=== PATIENT | male | born 1955 | race Caucasian/White ===

== ENCOUNTER 2016-09-01 11:36 | Observation (INO) ==
[2016-09-01] MEDS ORDERED: Aspirin 81 MG TAB.CHEW PO ONE (11:58)
--- NOTE | 2016-09-01 12:06 | Emergency Department Note ---
Disposition Clinical Impression: Chest pain Qualifiers: Chest pain type: unspecified Qualified Code(s): R07.9 - Chest pain, unspecified Disposition: Admitted As Inpatient Condition: Good Referrals: Sue Reynolds CNP [Primary Care Provider] - Forms: ED Satisfaction Letter Time of Disposition: 13:38 Chest Pain HPI - General Chief Complaint: ED Chest Pain Stated Complaint: SOB, Chest discomfort Time Seen by Provider: 09/01/16 11:51 Source: patient Limitations: no limitations Vital Signs Reviewed: Yes Nursing Notes Reviewed: Yes - History of Present Illness HPI Narrative: 61-year-old with previous history of MS and stents back in 2009 comes in complaining of chest pain that started earlier today. He describes it as a tight heaviness in his chest. 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 Duration: constant Pain Location: substernal, left chest Severity scale (1-10): 0 Quality: tightness, aching, heaviness Pain Radiation: none Improves with: nothing Worsens with: nothing Associated symptoms: Denies: nausea, vomiting Treatments prior to arrival chest pain: aspirin - Related Data Allergies Allergy/AdvReac Type Severity Reaction Status Date / Time No Known Allergies Allergy Verified 09/01/16 11:46 Constitutional: Denies: fever, chills, weakness, weight change Eyes: Denies: eye pain, eye discharge, vision change ENT ED: Denies: ear pain, throat pain, dental pain, hearing loss, epistaxis, congestion, dysphagia Cardiovascular: Reports: chest pain. Denies: palpitations, dyspnea on exertion , edema, syncope Respiratory: Denies: cough, dyspnea, wheezes, hemoptysis, stridor Gastrointestinal: Denies: abdominal pain, nausea, vomiting, diarrhea, constipation, hematemesis, melena, hematochezia Genitourinary: Denies: urgency, dysuria, frequency, hematuria Musculoskeletal: Denies: back pain, neck pain, arthralgia, myalgia Integumentary: Denies: rash, abrasion, lesions Neurological: Denies: headache, weakness, numbness, paresthesias, confusion, abnormal gait, vertigo Psychiatric: Denies: anxiety, depression, suicidal thoughts, homicidal thoughts , auditory hallucinations, visual hallucinations Endocrine: Denies: fatigue Hematological/Lymphatic: Denies: easy bleeding, easy bruising Allergic/Immunologic: Denies: facial swelling, urticaria Chest Pain PMH - Past Medical History Medical history: Reports: COPD, diabetes, hyperlipidemia, hypertension, kidney stones, myocardial infarction Psychiatric history: Reports: no psych history - Social History Smoking Status: Former smoker Alcohol use: Reports: none Drug use: Reports: none Physical Exam - General Limitations: no limitations General appearance: alert, in no apparent distress - Head Head exam: atraumatic, normocephalic, normal inspection - Eye Eye exam: Present: normal appearance, PERRL, EOMI - ENT ENT exam: normal exam, normal oropharynx, mucous membranes moist - Neck Neck exam: Present: normal inspection, full ROM, trachea midline - Chest Chest inspection: Present: normal inspection, symmetric chest wall rise - Respiratory Respiratory exam: Present: normal lung sounds bilaterally - Cardiovascular Cardiovascular exam: Present: regular rate, normal rhythm, normal heart sounds - Abdominal Exam Abdominal exam: Present: soft, Non-Tender. Absent: tenderness, distention, guarding, rebound, rigidity - Extremities Exam Extremities exam: Present: normal inspection, full ROM. Absent: tenderness, pedal edema - Expanded Lower Extremity Exam Neurovascular/Tendon exam: Absent: motor deficit, sensory deficit, tendon deficit Gait: observed and normal - Back Exam Back exam: Present: normal inspection, full ROM. Absent: tenderness - Neurological Exam Neurological exam: Present: alert, oriented X3 - Psychiatric Psychiatric exam: Present: normal affect, normal mood - Skin Skin exam: Present: warm, dry, intact, normal color Course - Reevaluation(s) Reevaluation #1: Patient with multiple risk factors comes in complaining of chest tightness and heaviness. States has had a previous MS with similar symptoms. Time: 13:37 - Consultations Consultation #1: Discussed with Raissa Hicks nurse practitioner who accepts the patient for admission. Time: 13:36 Vital Signs Temperature 98.3 F 09/01/16 11:46 Pulse Rate 116 09/01/16 11:46 Respiratory Rate 18 09/01/16 11:46 Blood Pressure 121/77 09/01/16 11:46 O2 Sat by Pulse Oximetry 92 L 09/01/16 11:46 Temperature 98.3 F 09/01/16 11:46 Pulse Rate 107 09/01/16 13:15 Respiratory Rate 18 09/01/16 13:15 Blood Pressure 114/81 09/01/16 13:15 O2 Sat by Pulse Oximetry 94 L 09/01/16 13:15 Oxygen Delivery Oxygen Delivery Nasal Cannula Chest Pain - Lab Data Lab results reviewed: Yes I reviewed the patient's lab results. Result diagrams: 09/01/16 12:10 09/01/16 12:10 Lab Results 09/01/16 09/01/16 09/01/16 Range/Units 12:10 12:10 12:10 WBC 6.4 (4.3-11.1) K/mcL RBC 4.66 (4.19-5.50) M/mcL Hgb 14.3 (12.9-16.9) g/dL Hct 42.4 (37.5-50.1) % MCV 91.0 (83.0-100.0) fL MCH 30.7 (28.0-33.3) pg MCHC 33.7 (31.6-35.5) g/dL RDW 12.3 (11.5-14.5) % Plt Count 256 (140-400) K/mcL MPV 10.4 (9.4-12.4) fL Immature Gran % 0.3 (0-4) % Seg Neutrophils % 37.9 % Lymphocytes % 48.0 % Monocytes % 5.8 % Eosinophils % 7.4 % Basophils % 0.6 % Neutrophils # 2.4 (1.6-8.9) K/mcL Lymphocytes # 3.1 (0.6-4.6) K/mcL Monocytes # 0.4 (0.0-1.3) K/mcL Eosinophils # 0.5 (0.0-0.6) K/mcL Basophils # 0.0 (0.0-0.2) K/mcL PT 10.3 (9.4-12.1) Seconds INR 1.0 APTT 23.8 L (26.0-36.0) Seconds Sodium 137 (136-145) mEq/L Potassium 3.9 (3.5-4.5) mEq/L Chloride 102 (98-109) mEq/L Carbon Dioxide 25 (19-29) mEq/L BUN 16 (8-26) mg/dL Creatinine 1.15 (0.72-1.25) mg/dL Est GFR ( Amer) > 60 (> 60) Est GFR (Non-Af Amer) > 60 (> 60) BUN/Creatinine Ratio 14 (6-26) Glucose 494 H (70-99) mg/dL Calculated Osmolality 307 H (280-300) Calcium 9.1 (8.6-10.8) mg/dL Troponin I (0-0.03) ng/mL 09/01/16 Range/Units 12:10 WBC (4.3-11.1) K/mcL RBC (4.19-5.50) M/mcL Hgb (12.9-16.9) g/dL Hct (37.5-50.1) % MCV (83.0-100.0) fL MCH (28.0-33.3) pg MCHC (31.6-35.5) g/dL RDW (11.5-14.5) % Plt Count (140-400) K/mcL MPV (9.4-12.4) fL Immature Gran % (0-4) % Seg Neutrophils % % Lymphocytes % % Monocytes % % Eosinophils % % Basophils % % Neutrophils # (1.6-8.9) K/mcL Lymphocytes # (0.6-4.6) K/mcL Monocytes # (0.0-1.3) K/mcL Eosinophils # (0.0-0.6) K/mcL Basophils # (0.0-0.2) K/mcL PT (9.4-12.1) Seconds INR APTT (26.0-36.0) Seconds Sodium (136-145) mEq/L Potassium (3.5-4.5) mEq/L Chloride (98-109) mEq/L Carbon Dioxide (19-29) mEq/L BUN (8-26) mg/dL Creatinine (0.72-1.25) mg/dL Est GFR ( Amer) (> 60) Est GFR (Non-Af Amer) (> 60) BUN/Creatinine Ratio (6-26) Glucose (70-99) mg/dL Calculated Osmolality (280-300) Calcium (8.6-10.8) mg/dL Troponin I 0.01 (0-0.03) ng/mL - Radiology Data Radiology results reviewed: Yes I reviewed the patient's radiology results. Chest X-Ray 09/01/16 11:58 IMPRESSION: Small focal infiltrate in the right perihilar region. D/ / 09/01/2016 12:55:44 Deven Palencia MD / bcarter Interpreting Provider: Deven Palencia MD - EKG Data EKG attestation: Yes I reviewed and interpreted this EKG. EKG shows normal: sinus rhythm Rate: normal Rhythm: NSR Interpretation: nonspecific ST-T wave changes Heart Score - Score History: Moderately Suspicious EKG: Non Specific repolarisation Disturbance Age: 45-65 Risk Factors: Equal/Greater than 3 risk factor or history of atherosclerotic disease Troponin: Less than normal limit HEART Score Total: 5
[2016-09-01 12:30] LABS: Basophils % 0.6 %; Eosinophils # 0.5 K/mcL (0.0-0.6); Eosinophils % 7.4 %; Hematocrit 42.4 % (37.5-50.1); Hemoglobin 14.3 g/dL (12.9-16.9); Immature Granulocytes % 0.3 % (0-4); Lymphocytes # 3.1 K/mcL (0.6-4.6); Mean Corpuscular HGB Conc 33.7 g/dL (31.6-35.5); Mean Corpuscular Hemoglobin 30.7 pg (28.0-33.3); Mean Platelet Volume 10.4 fL (9.4-12.4); Monocytes # 0.4 K/mcL (0.0-1.3); Monocytes % 5.8 %; Neutrophils # 2.4 K/mcL (1.6-8.9); Platelet Count 256 K/mcL (140-400); Red Blood Count 4.66 M/mcL (4.19-5.50); Red Cell Distribution Width 12.3 % (11.5-14.5); Segmented Neutrophils % 37.9 %
[2016-09-01 12:34] LABS: Prothrombin Time 10.3 Seconds (9.4-12.1)
[2016-09-01 12:37] LABS: Activated Partial Thrombo Time 23.8 Seconds (26.0-36.0)
[2016-09-01 12:41] LABS: BUN/Creatinine Ratio 14 (6-26); Blood Urea Nitrogen 16 mg/dL (8-26); Calcium 9.1 mg/dL (8.6-10.8); Carbon Dioxide 25 mEq/L (19-29); Chloride 102 mEq/L (98-109); Glucose 494 mg/dL (70-99); Osmolality,Calculated 307 (280-300); Potassium 3.9 mEq/L (3.5-4.5); Sodium 137 mEq/L (136-145); eGFR For African Americans > 60 (> 60); eGFR For Non-African Americans > 60 (> 60)
[2016-09-01] MEDS ORDERED: Azithromycin 500 MG in D5% in Water 250 ML IVPB ONE (13:18)
[2016-09-01] MEDS ORDERED: Acetaminophen 325 MG TABLET PO PRN (15:12)
[2016-09-01] MEDS ORDERED: Naloxone 0.4 MG/ML INJ IVP PRN (15:12)
[2016-09-01] MEDS ORDERED: *HR* Dextrose 50 % in Water (Syg) 50 ML SYRINGE IVP PRN (15:15)
[2016-09-01] MEDS ORDERED: D5% in Water 1,000 ML IVC PRN (15:15)
[2016-09-01] MEDS ORDERED: Dextrose Gel 15 GM PO PRN ×2 (15:15)
--- NOTE | 2016-09-01 15:19 | Internal Med History&Physical ---
<Raissa Hicks - Last Filed: 09/01/16 22:54> Date of Encounter: 09/01/16 Time of Encounter: 15:19 Assessment and Plan (1) Chest pain Current visit: Yes Status: Acute 1 patient has been experiencing chest pressure tightness. He has had previous CT, hypertension and diabetes. first cardiac troponins are negative we will continue to cycle cardiac troponins 2 Will obtain cardiac echo 3 make patient nothing by mouth after midnight 4 consult cardiology as needed 5 continuous cardiac monitoring/EKG 6 oxygen as needed/nitroglycerin as needed 7 continue with aspirin and Plavix statin beta dashawn 8 x-ray did reveal possible small infiltrate have her rechecked PA and lateral which was clear Qualifiers: Chest pain type: unspecified Qualified Code(s): R07.9 - Chest pain, unspecified (2) Hypertension Current visit: Yes Status: Acute 1 presently controlled we will continue with beta dashawn goals to maintain systolic less than 140 Qualifiers: Hypertension type: essential hypertension Qualified Code(s): I10 - Essential (primary) hypertension (3) Diabetes mellitus Current visit: Yes Status: Acute 1 A she is on oral antidiabetics will hold for now and place on Accu-Cheks before meals at bedtime with sliding scale insulin. 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 Diaz is a 61 year old male past medical history of diabetes hypertension CT with stent placement COPD. According to patient he began to experience left- sided chest pressure 4-5/10 . Pain was nonradiating there were no aggravating or relieving factors. Patient did take 3 nitroglycerin without any relief. He did have some shortness of breath during the episode . He is concerned because the pain reminds him of his previous heart attack. He is also noticing increasing shortness of breath over the past couple of days. He denies any cough fevers chills nausea vomiting or diarrhea. He presented to the ER with complaint of chest pain. According to ER records versus cardiac troponins are negative EKG normal sinus rhythm rest of lab work as unremarkable chest x-ray did show a small focal infiltrate and right paul-hilar region. He has been admitted for further workup evaluation. Presently patient denies any chest pain or shortness of breath. Does not appear to be in respiratory distress. Lung sounds are clear. Heart sounds with S1 S2 no rubs clips gallops or murmurs noted. No lower extremity edema noted. At present time patient is hemodynamically stable.I reviewed this case with Dr Anderson. Who agrees with plan. Past Med Surg Social Fam HX - Past Medical History Medical history: COPD, diabetes, hyperlipidemia, hypertension, kidney stones, myocardial infarction Psychiatric history: no psych history - Social History Smoking Status: Former smoker Smokeless Tobacco Status: No Alcohol use: none Drug use: none - Family History Mother Living Status: Hx Family Neurologic Disorders: Yes (stroke) Father Living Status: Hx Family Cardiac Disorders: Yes (heart attack) Internal Medicine - H&P: Meds Albuterol Neb [Proventil Neb] 2.5 mg IH Q6H PRN 09/01/16 [History] Albuterol Sulfate [Proair Hfa] 2 puff IH Q4H PRN 09/01/16 [History] Allopurinol [Zyloprim 300 MG] 300 mg PO DAILY 09/01/16 [History] Aspirin Enteric Coated [Aspirin EC] 81 mg PO DAILY 09/01/16 [History] Atorvastatin Calcium 80 mg PO HS 09/01/16 [History] Clopidogrel [Plavix] 75 mg PO DAILY 09/01/16 [History] Fluticasone/Salmeterol [Advair 250-50 Diskus] 1 each IH BID 09/01/16 [History] Metformin HCl [Metformin HCl ER] 500 mg PO DAILY 09/01/16 [History] Metoprolol [Lopressor] 25 mg PO BID 09/01/16 [History] Tamsulosin [Flomax] 0.4 mg PO DAILY 09/01/16 [History] Allergies No Known Allergies Allergy (Verified 09/01/16 11:46) All Systems PM: A 10-system review of systems was performed and is negative for pertinent findings except as documented above in the HPI. - Constitutional Constitutional: no chills, no fever(s), no night sweats - EENT Eyes: no change in vision, no discharge, no pain, no photophobia - Cardiovascular Cardiovascular ROS IM: chest pain, dyspnea - Respiratory Respiratory: dyspnea - Gastrointestinal Gastrointestinal: no abdominal pain, no diarrhea, no hematemesis, no hematochezia, no melena, no nausea, no vomiting - Musculoskeletal Musculoskeletal ROS IM: no numbness, no tingling - Integumentary Integumentary IM: no rash, no unusual bruising - Neurological Neurological ROS: no confusion, no convulsions, no focal weakness, no numbness, no tingling, no tremor(s) - Hematologic/Lymphatic Hematologic/Lymphatic: no easy bruising - Constitutional Vitals: Temp Pulse Resp BP Pulse Ox 98.3 F 96 18 116/77 95 09/01/16 11:46 09/01/16 14:30 09/01/16 14:30 09/01/16 14:30 09/01/16 14:30 General appearance: Present: A&O X 3 - Head Head exam: Present: atraumatic, normocephalic - Neck Neck exam general surgery: Present: supple, trachea midline. Absent: lymphadenopathy - Respiratory Respiratory exam: Present: CTAB. Absent: accessory muscle use, rales, rhonchi, wheezes - Cardiovascular Cardiovascular exam: Present: RRR, +S1, +S2. Absent: diastolic murmur, gallop, rubs, systolic murmur - Extremities Exam Extremities exam: Present: warm, radial pulses palpable and symetrical. Absent : calf tenderness, cyanotic, pedal edema - Neurological Exam Neurological exam: Present: CN II-XII intact, oriented X3, no focal deficits. Absent: pronater drift, facial droop, speech deficit - Skin Skin exam: Present: dry, intact Internal Med - H&P Results - Labs CBC & Chem 7: 09/01/16 12:10 09/01/16 12:10 - EKG Data EKG shows normal: sinus rhythm <Lucia Maher R - Last Filed: 09/02/16 00:39> Internal Medicine - H&P: HPI History of present illness: Mr. Diaz is a 61 year old male All Systems PM: A 10-system review of systems was performed and is negative for pertinent findings except as documented above in the HPI. - Constitutional Vitals: Temp Pulse Resp BP Pulse Ox 98.1 F 80 16 102/64 94 L 09/01/16 23:34 09/01/16 23:34 09/01/16 23:34 09/01/16 23:34 09/01/16 23:34 Internal Med - H&P Results - Labs CBC & Chem 7: 09/01/16 12:10 09/01/16 12:10 Labs: Cardiac Enzymes 09/01/16 Range/Units 18:26 Troponin I 0.00 (0-0.03) ng/mL - Impressions ITS Impressions Chest X-Ray 09/01/16 20:06 IMPRESSION: No acute cardiopulmonary disease. In particular, no perihilar infiltrate on the right. D/ / Jamil Murillo MD / Jamil Murillo MD Interpreting Provider: Jamil Murillo MD - Attending Attestation I evaluated the patient and my medical decision-making was reviewed with the [employer] DEVELOPER/ Advanced Practice Nurse. I agree with the documented findings, disposition and treatment plan as described except to the extent set forth below. 61-year-old male with a prior history of diabetes, hypertension, CAD s/p stent placement, COPD - presents with nonradiating chest discomfort / pressure, exertional shortness of breath. O/E: Occasional wheeze present. Cardiac: RRR. EKG non acute. Initial CXR reported right perihilar infiltrate, repeat chest x- ray did not show any acute abnormality. Initial troponins negative. A/P: Chest pain Need to exclude ACS. Could be contributed by COPD exacerbation. Low dose steroids (has hyperglycemia) and bronchodilators.
[2016-09-01] MEDS: Insulin LISPRO 300 UNITS/3 ML VIAL SQ SCH (16:51)
[2016-09-01] MEDS ORDERED: Insulin LISPRO 300 UNITS/3 ML VIAL SQ SCH (21:00)
[2016-09-01] MEDS: Budesonide/Formoterol 80/4.5 MDI IH SCH (22:48)
[2016-09-02] MEDS ORDERED: Ipratropium/Albuterol Neb 3 ML IH PRN (00:37)
[2016-09-02] MEDS ORDERED: predniSONE 20 MG TABLET PO SCH (00:45)
[2016-09-02 00:49] LABS: Basophils # 0.1 K/mcL (0.0-0.2); Basophils % 0.9 %; Eosinophils # 1.1 K/mcL (0.0-0.6); Eosinophils % 13.6 %; Hematocrit 38.9 % (37.5-50.1); Hemoglobin 13.2 g/dL (12.9-16.9); Immature Granulocytes % 0.1 % (0-4); Lymphocytes # 2.9 K/mcL (0.6-4.6); Lymphocytes % 37.4 %; Mean Corpuscular HGB Conc 33.9 g/dL (31.6-35.5); Mean Corpuscular Hemoglobin 31.1 pg (28.0-33.3); Mean Corpuscular Volume 91.7 fL (83.0-100.0); Mean Platelet Volume 10.3 fL (9.4-12.4); Monocytes # 0.7 K/mcL (0.0-1.3); Platelet Count 212 K/mcL (140-400); Red Blood Count 4.24 M/mcL (4.19-5.50); Red Cell Distribution Width 12.4 % (11.5-14.5)
[2016-09-02 01:07] LABS: BUN/Creatinine Ratio 15 (6-26); Blood Urea Nitrogen 13 mg/dL (8-26); Calcium 8.3 mg/dL (8.6-10.8); Carbon Dioxide 23 mEq/L (19-29); Chloride 104 mEq/L (98-109); Chol/HDL Ratio 4.3 (0-4.9); Cholesterol 111 mg/dL (< 200); Glucose 388 mg/dL (70-99); HDL Cholesterol 26 mg/dL (40-59); LDL Cholesterol,Calculated 31 mg/dL (0-99); Osmolality,Calculated 298 (280-300); Potassium 3.6 mEq/L (3.5-4.5); Sodium 136 mEq/L (136-145); Triglycerides 269 mg/dL (< 150); eGFR For African Americans > 60 (> 60); eGFR For Non-African Americans > 60 (> 60)
[2016-09-02] MEDS: Budesonide/Formoterol 80/4.5 MDI IH SCH (07:52)
[2016-09-02] MEDS ORDERED: Aspirin Enteric Coated 81 MG Tablet PO SCH (09:00)
[2016-09-02] MEDS: Insulin LISPRO 300 UNITS/3 ML VIAL SQ SCH ×2 (10:08→14:11)
--- NOTE | 2016-09-02 10:23 | ECHO - Doppler Report ---
Echocardiogram Name: Jordan Diaz Date of Study: 09/02/2016 Date: 1955 Ht: 70.0 in Medical Record#: [id number] Age: 61 Wt: 214.0 lb Gender: Male BSA: 2.15 Order #: [id number] Location: [facility] Room #: 3B Reading Physician: Bhupinder Higginbotham MD, [facility] Mica Splitter: Alex Allen RDCS Ordering Physician: Raissa Hicks CNP Primary Physician: None Indications: Chest pain Impressions: Normal LV systolic function, LVEF 60-65%. Mild left ventricular diastolic dysfunction. Normal right ventricular size and function. No significant valvular dysfunction. Left Ventricular Wall Motion: Rest Echo Findings All wall segments showed normal motion. Findings: Study Quality * Technically adequate exam. ECG Findings * Normal sinus rhythm. Left Ventricle * Normal LV systolic function, LVEF 60-65%. * Normal LV chamber size, wall thickness and function. * Mild left ventricular diastolic dysfunction. Right Ventricle * Normal right ventricular size and function. Left Atrium * Normal left atrial size. Right Atrium * Normal right atrial size. Aorta * Normally sized aortic root. Pericardium * There is no pericardial effusion present. IVC * The IVC is not dilated. Aortic Valve * Trileaflet aortic valve. * Mildly sclerotic aortic valve leaflets. * No aortic stenosis. * No aortic regurgitation. Mitral Valve * Normal mitral valve structure. * No mitral stenosis. * Trace mitral regurgitation. Tricuspid Valve * Normal tricuspid valve structure. * No tricuspid stenosis. * Trace tricuspid regurgitation. * Unable to estimate RVSP due to lack of TR jet. Pulmonic Valve * Normal pulmonic valve structure. * No pulmonic stenosis. * No pulmonic regurgitation. History Hypertension Diabetes Hypercholesteremia Family History of CAD History of CAD/PTCA Myocardial Infarction Measurements: BP: 132/ 77 2D Normal Values RVIDd: 3.30 cm IVSd: .90 cm 0.6 - 1.0 cm LVIDd: 4.26 cm 3.7 - 5.6 cm LVPWd: .79 cm 0.6 - 1.1 cm LVIDs: 2.76 cm 1.5 - 3.6 cm AO: 3.20 cm < 4.0 cm %FS: 35.20 cm >25 % LA volume: 55 Mitral Valve Peak E:.70 m/sec Peak A:.90 m/sec E/A Ratio:0.8 Updated by Bhupinder Higginbotham MD, FACC on 09/02/2016 10:18:26 AM electronically signed on 09/02/2016 10:18:49 AM with status of Final Wall Motion Murillo: 1=Normal, 2=Hypokinesis, 3=Akinesis, 4=Dyskinesis, 5=Aneurysmal, 6=Hyperkinetic, X=Not Visualized (Blank)=Missing
--- NOTE | 2016-09-02 10:43 | Nuclear Medicine Stress Report ---
Exercise Nuclear Stress Name: Jordan Diaz Date of Study: 09/02/2016 Date: 1955 Ht: 70.0 in Medical Record#: [id number] Age: 61 Wt: 210.0 lb Gender: Male Order #: [id number] Location: [facility] IP Room: [facility] Supervising Provider: Elayne Hernandez CNP Reading Physician: Bhupinder Higginbotham MD, [facility] Ordering Physician: Yeimi Lane CNP Primary Care Physician: Sue Reynolds CNP Stress Technologist: Joel Bermudez, ASSEMBLY ASSOCIATE, [facility] Optometric Assistant: Dar Cano Indications: Chest Pressure, Chest Pressure Impression: The exercise capacity was fair. Exercise ECG is negative for ischemia. Gated LVEF > 70%. Perfusion imaging was negative for ischemia or infarct. History: Hypertension Diabetes Hypercholesteremia Stress Test Summary: Stress Test Type: Treadmill Protocol: Foreign Baseline Information: Initial Heart Rate: 92 Blood Pressure: 118/78 Stress Information: Stress Time: 5 min 00 sec Test Terminated Due to (primary): Dyspnea Maximum Blood Pressure: 160/76 Maximum Heart Rate: 138 Percent Maximum Heart Rate Achieved: 87 Double Product: 21110 METS Reached: 7 Symptoms: Shortness of breath, Fatigue, Shortness of breath, Fatigue Nuclear Summary: SPECT myocardial perfusion imaging using Tc99m Sestamibi given intravenously was performed at rest and following cardiac stress testing. The resting images were obtained following initial dose of 10.4 mCi. Following stress an additional dose of 33 mCi was given at peak exercise or 30 seconds post regadenoson infusion. Findings: Stress Note * Resting ECG demonstrated normal sinus rhythm. * No baseline arrhythmias were noted. * The exercise capacity was fair. * Patient had no chest pain during stress. * No arrhythmias were noted during stress. * Exercise ECG is negative for ischemia. Hemodynamic responses * Normal hemodynamic responses to exercise. Study Quality * Study quality is average. Gated EF > 70% * Gated LVEF > 70%. Left Ventricle * The left ventricle is not dilated. * Normal Segmental Perfusion in rest. * Normal segmental perfusion in stress. * Mild inferior wall artifact is noted. TID * No evidence of transient ischemic dilatation. Updated by Bhupinder Higginbotham MD, [facility] on 09/02/2016 10:38:49 AM electronically signed on 09/02/2016 10:39:11 AM with status of Final
[2016-09-02 14:45] VITALS: BP 106/73
--- NOTE | 2016-09-02 15:56 | Discharge Summary ---
Date of Encounter: 09/02/16 Time of Encounter: 15:15 - Discharge Diagnosis (1) Chest pain Priority: Secondary Status: Acute Comments: Pt was admitted for mid sternal chest pressure since yesterday prior to arrival. Pt denies radiation of pain, n/v, SOB, or diaphoresis. He denies chest pressure now, as well as other, above mentioned symptoms.Pt had stress test today that was negative for ischemia or infarct, gated LVEF >70%. Echo showed LVE 60-65%, mild LV diastolic dysfunction, normal RV size and function, and no significant valvular dysfunction. EKG was negative for ischemia, as well. Pt has been up walking around and even left the unit to go to the vending machine without SOB or chest pain. Troponins were negative x 3. Repeat chest xray was negative. Lungs are clear except for wheezing in LLL, pt has no peripheral edema. Qualifiers: Chest pain type: unspecified Qualified Code(s): R07.9 - Chest pain, unspecified (2) COPD (chronic obstructive pulmonary disease) Priority: Secondary Status: Chronic Comments: Pt has a history of COPD that is well controlled. Pt had initial chest xray in the ER last night that showed infiltrate in the R perihilar area. Chest xray was repeated and there was no infiltrate. Pt has been afebrile, denies change in his cough, denies increased inhaler useage, and no leukocytosis. Pt states that he stopped smoking about 4 years ago. He states that he feels as he normally does and he does not require 02 at home. He states that he will return or go to the ED or urgent care if he has a fever or increased cough. Qualifiers: COPD type: unspecified COPD Qualified Code(s): J44.9 - Chronic obstructive pulmonary disease, unspecified (3) Hypertension Priority: Secondary Status: Chronic Comments: Chronic. Continue home medications. Pt has been normotensive. Qualifiers: Hypertension type: essential hypertension Qualified Code(s): I10 - Essential (primary) hypertension (4) Diabetes mellitus Priority: Secondary Status: Acute Comments: Pt has been hyperglycemic , A1c 7.1% in June 2016. Pt has been taking steroids and will continue home medications. 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 BEBO rayo. - Discharge Medications Prescriptions: PredniSONE 20 mg PO DAILY #7 tablet Home Medications: Albuterol Neb [Proventil Neb] 2.5 mg IH Q6H PRN 09/01/16 [History] Albuterol Sulfate [Proair Hfa] 2 puff IH Q4H PRN 09/01/16 [History] Allopurinol [Zyloprim 300 MG] 300 mg PO DAILY 09/01/16 [History] Aspirin Enteric Coated [Aspirin EC] 81 mg PO DAILY 09/01/16 [History] Atorvastatin Calcium 80 mg PO HS 09/01/16 [History] Clopidogrel [Plavix] 75 mg PO DAILY 09/01/16 [History] Fluticasone/Salmeterol [Advair 250-50 Diskus] 1 each IH BID 09/01/16 [History] Metformin HCl [Metformin HCl ER] 500 mg PO DAILY 09/01/16 [History] Metoprolol [Lopressor] 25 mg PO BID 09/01/16 [History] Tamsulosin [Flomax] 0.4 mg PO DAILY 09/01/16 [History] PredniSONE 20 mg PO DAILY #7 tablet 09/02/16 [Rx] Allergies/Adverse Reactions: Allergies No Known Allergies Allergy (Verified 09/01/16 11:46) Procedures/tests Complete & Pending: Procedures Performed prior 72 hours Category Date Time Status NM tracie perf SPECT multi [NM] Routine Exams 09/02/16 00:38 Taken ECG 12 lead ECG [ECG] AM 0600 Y 09/02/16 06:00 Ordered EV echocardiogram Routine Y 09/02/16 15:16 Completed SP exercise nuclear stress Routine Y 09/02/16 07:15 Completed Date of admission: 09/01/16 14:23 Primary care physician: Sue Reynolds CNP Discharging clinician: Martha Justice Anticipated date of discharge: 09/02/16 - Patient Status Disposition: Home, Self-Care Functional capacity at discharge: independent ambulation Overall status at discharge: patient is progressing back to baseline - Discharge Instructions Follow Up With: Sue Reynolds CNP [Primary Care Provider] - Additional Instructions: Continue taking your home medications as usual. Prednisone 20mg po daily until gone x 7 days If you begin having fevers, increased cough, you have to use your inhaler more than normal, or you begin having chest pain again, please return to the ED, also for any other concerns. - Diet and Activity Activity: increase activity as tolerated, wear oxygen at night Diet: advance to your usual diet Hospital course: Mr. Diaz is a 61 year old male with a history of diabetes,hypertension, NC and stent placement, and COPD who presented to the emergency room yesterday for complaint of left-sided chest pressure for most of the day prior to arrival. Patient did not radiate, he did not have any nausea or vomiting, however he did have some shortness of breath. He reports increasing shortness of breath over the last couple of days denies fevers, chills. He rated his chest pressure 4 or 5 out of 10 and stated that nothing made it better or worse. Initial chest x -ray showed right perihilar infiltrates. Was repeated and there are no infiltrates. Stress test was negative for ischemia or infarct, gated LVEF is greater than 70%. Echo showed LVEF 6065%, normal LV systolic function, mild LV diastolic dysfunction, normal RV size and function, and no significant valvular dysfunction. EKG was normal was negative for ischemia. Patient is pain-free at this time. Patient reports increasing cough since Thursday, cough is dry and nonproductive. Patient states that he has not had a change in his cough, fever, increased mucus production, or increased inhaler use. Left lower lobe has pain expiratory wheezing. Patient will continue home medications and low- dose prednisone. Vision is stable for discharge at this time as he has been up walking around the department and actually left the department without incident to go to that the machine. Time spent discussing smoking cessation with patient: 3 to 10 minutes - Time Spent with Patient Total time spent providing and/or coordinating discharge services: - Constitutional Vitals: Temp Pulse Resp BP Pulse Ox 97.8 F 97 16 106/73 93 L 09/02/16 14:43 09/02/16 14:43 09/02/16 14:43 09/02/16 14:43 09/02/16 14:43 General appearance: Present: cooperative, A&O X 3, pleasant, no acute distress, answers questions appropriately - Head Head exam: Present: normal inspection - Eye Eye exam: Present: normal appearance, conjuntiva pink - ENT ENT exam: Present: mucous membranes moist, normal exam, normal external ear exam , normal oropharynx - Neck Neck exam general surgery: Present: normal inspection. Absent: lymphadenopathy , tenderness - Respiratory Respiratory exam: Present: CTAB, wheezes. Absent: chest wall tenderness, decreased breath sounds, rales, respiratory distress, rhonchi, stridor, tachypnea Additional comments: Lungs clear except for faint expiratory wheezing in LLL. - Cardiovascular Cardiovascular exam: Present: +S1, +S2. Absent: diastolic murmur, systolic murmur - GI/Abdominal GI/Abdominal exam: Present: normal bowel sounds, soft. Absent: hepatomegaly, tenderness - Extremities Exam Extremities exam: Present: full ROM, normal capillary refill, warm, radial pulses palpable and symetrical. Absent: joint swelling, pedal edema, tenderness - Neurological Exam Neurological exam: Present: alert, oriented X3. Absent: no focal deficits, facial droop, speech deficit
--- NOTE | 2016-09-03 07:28 | Electrocardiograph Report ---
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
== END 2016-09-02 18:01 | disposition home or self-care (01) ==
LOC: 3BNU 11:36 → EMEROO 11:36 → 3BNU 15:27
PROVIDERS: ADMIT Nurse Practitioner Acute Care; ATTEND Registered Nurse